=== PATIENT | female | born 1930 | race Caucasian/White ===

== ENCOUNTER 2018-07-24 12:06 | Day surgery (SDC) | payer OTHER, BC ==
[2018-07-24] MEDS ORDERED: MIDAZOLAM 1 MG/ML 2 ML INJ ×2 (14:43)
[2018-07-24] MEDS ORDERED: FENTAnyl 50 MCG/ML VIAL (14:43)
== END 2018-07-24 17:58 | disposition home or self-care (01) ==
LOC: GIL 12:06
DX: Z12.11 Encounter for screening for malignant neoplasm of colon (principal); D12.2 Benign neoplasm of ascending colon; K64.8 Other hemorrhoids; Q27.33 Arteriovenous malformation of digestive system vessel
CPT/HCPCS: 45380; 88305